=== PATIENT | female | born 2000 | race Asian ===

== ENCOUNTER 2018-01-14 00:43 | Emergency (ER) | payer OTHER ==
[~2018-01-14] VITALS: Ht 152.4 cm; Wt 53.5 kg
[2018-01-14 00:57] VITALS: TEMP 98.5
[2018-01-14 01:40] VITALS: BP 113/48
== END 2018-01-14 01:41 | disposition home or self-care (01) ==
LOC: ED 00:43
DX: S90.111A Contusion of right great toe without damage to nail, initial encounter (principal); W51.XXXA Accidental striking against or bumped into by another person, initial encounter
CPT/HCPCS: 99282

== ENCOUNTER 2018-03-15 03:56 | Observation (INO) | payer OTHER ==
[~2018-03-15] VITALS: Ht 152.4 cm; Wt 54.1 kg
[2018-03-15] VITALS (8 sets, daily range): BP systolic 89–132; BP diastolic 51–78; TEMP 97.5–98.9
[2018-03-15 04:32] LABS: PLATELET COUNT 313 K/uL (152-353)
[2018-03-15 04:40] LABS: POTASSIUM 3.4 mmol/L (3.6-5.2)
[2018-03-16 03:57] VITALS: BP 97/56; TEMP 99.5
[2018-03-16 07:59] VITALS: BP 90/47; TEMP 98.2
[2018-03-16 11:23] VITALS: BP 103/66; TEMP 98.2
[2018-03-16 16:00] VITALS: BP 107/58; TEMP 98.5
[2018-03-16 20:00] VITALS: BP 112/64; TEMP 99.4
[2018-03-17] VITALS: BP 111/57; TEMP 98.5
[2018-03-17 04:00] VITALS: BP 146/84; BP 98/50; TEMP 97.8; TEMP 98.6
[2018-03-17 08:00] VITALS: BP 92/53; TEMP 98.5
[2018-03-17 12:00] VITALS: BP 89/52; TEMP 98
== END 2018-03-17 13:35 | disposition home or self-care (01) ==
LOC: ED 03:56 → MED/SURG 07:25
DX: N39.0 Urinary tract infection, site not specified (principal); B96.29 Other Escherichia coli [E. coli] as the cause of diseases classified elsewhere; N83.292 Other ovarian cyst, left side; R10.2 Pelvic and perineal pain
CPT/HCPCS: 36415; 36591; 80053; 81000; 81025; 85027; 87040; 87077; 87086; 87088; 87186; 87490; 87590; 96365; 96366; 96367; 96372; 96375; 99220; 99283; G0378; J0295; J1650; J3490; Q9963

== ENCOUNTER 2019-06-06 22:48 | Emergency (ER) | payer OTHER ==
[~2019-06-06] VITALS: Ht 152.4 cm; Wt 54.0 kg
[2019-06-07 00:13] VITALS: BP 124/68; TEMP 98.6
== END 2019-06-07 00:13 | disposition home or self-care (01) ==
LOC: ED 22:48
DX: N94.10 Unspecified dyspareunia (principal)
CPT/HCPCS: 81000; 81025; 87490; 87590; 96372; 99284; J0696; J1885

== ENCOUNTER 2019-08-10 01:32 | Emergency (ER) | payer OTHER ==
[~2019-08-10] VITALS: Ht 152.4 cm; Wt 51.7 kg
[2019-08-10 03:00] VITALS: BP 139/96; TEMP 98.3
== END 2019-08-10 03:00 | disposition home or self-care (01) ==
LOC: ED 01:32
DX: A59.9 Trichomoniasis, unspecified (principal); N76.0 Acute vaginitis; Z20.2 Contact with and (suspected) exposure to infections with a predominantly sexual mode of transmission
CPT/HCPCS: 81000; 81025; 87210; 87490; 87590; 96372; 99284; J0696

== ENCOUNTER 2019-10-16 19:09 | Emergency (ER) | payer OTHER ==
[~2019-10-16] VITALS: Ht 152.4 cm; Wt 52.2 kg
[2019-10-16 21:05] VITALS: BP 118/72; TEMP 98.1
== END 2019-10-16 21:00 | disposition home or self-care (01) ==
LOC: ED 19:09
DX: J02.9 Acute pharyngitis, unspecified (principal)
CPT/HCPCS: 87502; 87651; 96372; 99283; J1885

== ENCOUNTER 2020-05-18 15:31 | Emergency (ER) | payer OTHER ==
[~2020-05-18] VITALS: Ht 152.4 cm; Wt 58.5 kg
[2020-05-18 15:31] VITALS: TEMP 99.1
[2020-05-18 16:15] LABS: PLATELET COUNT 259 K/uL (152-353)
[2020-05-18 16:22] LABS: POTASSIUM 3.4 mmol/L (3.6-5.2); SODIUM 138 mmol/L (136-145)
[2020-05-18 16:31] LABS: PARTIAL THROMBOPLASTIN TIME 29.1 SECONDS (24.5-33.6)
[2020-05-18 17:30] VITALS: BP 112/75
== END 2020-05-18 17:51 | disposition home or self-care (01) ==
LOC: ED 15:31
PROVIDERS: Hospitalist
DX: R07.89 Other chest pain (principal); K21.9 Gastro-esophageal reflux disease without esophagitis
CPT/HCPCS: 36415; 80053; 82550; 83880; 84484; 85027; 85610; 85730; 93005; 99283

== ENCOUNTER 2020-07-04 15:43 | Emergency (ER) | payer OTHER ==
[~2020-07-04] VITALS: Ht 152.4 cm; Wt 58.5 kg
[2020-07-04 15:59] VITALS: BP 110/68; TEMP 98.5
== END 2020-07-04 17:39 | disposition home or self-care (01) ==
LOC: ED 15:43
DX: K08.89 Other specified disorders of teeth and supporting structures (principal)
CPT/HCPCS: 99281

== ENCOUNTER 2020-07-20 10:40 | Emergency (ER) | payer OTHER ==
[~2020-07-20] VITALS: Ht 152.4 cm; Wt 54.4 kg
[2020-07-20 10:49] VITALS: TEMP 98.9
[2020-07-20 11:34] LABS: PLATELET COUNT 215 K/uL (152-353)
[2020-07-20 11:38] LABS: POTASSIUM 3.5 mmol/L (3.6-5.2)
[2020-07-20 11:47] LABS: PARTIAL THROMBOPLASTIN TIME 26.6 SECONDS (24.5-33.6)
[2020-07-20 13:02] VITALS: BP 110/74
== END 2020-07-20 13:02 | disposition home or self-care (01) ==
LOC: ED 10:40
PROVIDERS: Hospitalist
DX: N30.80 Other cystitis without hematuria (principal); R10.2 Pelvic and perineal pain; K52.89 Other specified noninfective gastroenteritis and colitis
CPT/HCPCS: 36415; 80053; 81000; 81025; 83690; 85027; 85610; 85730; 96360; 96375; 99284; J1885; J2405; Q9963

== ENCOUNTER 2022-10-25 15:45 | Emergency (ER) | payer OTHER ==
[~2022-10-25] VITALS: Ht 152.4 cm; Wt 59.0 kg
[2022-10-25 15:54] VITALS: BP 142/88; TEMP 99.1
== END 2022-10-25 17:52 | disposition home or self-care (01) ==
LOC: ED 15:45
DX: S93.501A Unspecified sprain of right great toe, initial encounter (principal); X50.9XXA Other and unspecified overexertion or strenuous movements or postures, initial encounter; Y92.89 Other specified places as the place of occurrence of the external cause
CPT/HCPCS: 81025; 96372; 99283; J1885